=== PATIENT | female | born 1995 | race Caucasian/White ===

== ENCOUNTER 2024-10-11 | Emergency (ER) | payer OTHER ==
[~2024-10-11] VITALS: Ht 167.6 cm; Wt 66.0 kg
[2024-10-11 00:08] VITALS: BP 132/87; PULSE 125; RESP 18; TEMP 36.8; O2SAT 99
== END 2024-10-11 02:23 | disposition left against medical advice (07) ==
LOC: ER
DX: F41.9 Anxiety disorder, unspecified (principal); Z53.21 Procedure and treatment not carried out due to patient leaving prior to being seen by health care provider